=== PATIENT | male | born 1990 | race Caucasian/White ===

== ENCOUNTER 2017-07-19 07:46 | Inpatient (IN) | payer BC, OTHER ==
[~2017-07-19] VITALS: Ht 180.3 cm; Wt 72.6 kg
[2017-07-19] MEDS ORDERED: ONDANSETRON ODT 4 MG TAB.RAPDIS SL PRN (15:30)
[2017-07-19] MEDS ORDERED: INSULIN REGULAR, HUMAN 300 UNIT/3 ML VIAL SQ PRN ×2 (15:30→17:15)
[2017-07-19] MEDS ORDERED: ACETAMINOPHEN 325 MG TABLET PO PRN (15:30)
[2017-07-19] MEDS ORDERED: DEXTROSE 50% 50 ML DISP.SYRIN IV PRN ×2 (15:30→17:15)
[2017-07-19] MEDS ORDERED: MAG HYDROX/AL HYDROX/SIMETH 30 ML LIQUID UDC PO PRN (15:30)
[2017-07-19] MEDS ORDERED: INSULIN REGULAR, HUMAN 300 UNITS/3 ML VIAL SQ PRN (15:30)
[2017-07-19] MEDS ORDERED: IBUPROFEN 600 MG TABLET PO PRN (15:30)
[2017-07-19] MEDS ORDERED: ONDANSETRON 4 MG/2 ML VIAL IM PRN (15:30)
[2017-07-19] MEDS ORDERED: LOPERAMIDE HCL 2 MG CAPSULE PO PRN ×2 (15:30)
[2017-07-19] MEDS ORDERED: HYDROXYZINE PAMOATE 25 MG CAPSULE PO PRN (15:30)
[2017-07-19] MEDS ORDERED: LORAZEPAM 2 MG/1 ML VIAL IM PRN (15:30)
[2017-07-19] MEDS ORDERED: BUPRENORPHINE HCL 2 MG TAB.SUBL SL PRN (15:30)
[2017-07-19] MEDS ORDERED: MAGNESIUM HYDROXIDE 30 ML LIQUID UDC PO PRN (15:30)
[2017-07-19] MEDS ORDERED: MIRALAX 17 GM POWD.PACK PO PRN (15:30)
[2017-07-19] MEDS ORDERED: INSULIN PUMP SQ SCH (15:30)
[2017-07-19] MEDS ORDERED: NICOTINE POLACRILEX 4 MG GUM-PK OF TEN BC PRN (15:30)
[2017-07-19] MEDS ORDERED: NICOTINE 14 MG/24HR PATCH TD PRN (15:30)
[2017-07-19] MEDS ORDERED: DICYCLOMINE HCL 20 MG TABLET PO PRN (15:30)
[2017-07-19 16:30] VITALS: BP 129/74
[2017-07-19] MEDS ORDERED: BLOOD SUGAR DIAGNOSTIC 1 EACH STRIP VI SCH (16:30)
[2017-07-19] MEDS ORDERED: INSU100V (16:35)
[2017-07-19 17:07] LABS: *AMPHETAMINE, URINE NEGATIVE (NEGATIVE); *BARBITURATE, URINE NEGATIVE (NEGATIVE); *CANNABINOID, URINE POSITIVE (NEGATIVE); *COCCAINE, URINE POSITIVE (NEGATIVE); *OPIATE, URINE POSITIVE (NEGATIVE); *PHENCYCLIDINE SCREEN,URINE NEGATIVE (NEGATIVE)
[2017-07-19] MEDS: BLOOD SUGAR DIAGNOSTIC 1 EACH STRIP VI SCH ×2 (17:26→20:32)
[2017-07-19] MEDS: LORAZEPAM 1 MG TABLET PO PRN (20:26)
[2017-07-19] MEDS: METHOCARBAMOL 750 MG TABLET PO PRN (20:27)
[2017-07-19 22:08] LABS: BASOPHILS % (AUTO) 0.6 % (0.0-2.0); EOSINOPHILS # (AUTO) 0.3 K/uL (0.0-0.7); EOSINOPHILS % (AUTO) 4.2 % (0.0-7.0); HEMATOCRIT 41.3 % (36.7-47.1); HEMOGLOBIN 14.5 g/dL (12.5-16.3); LYMPHOCYTES % (AUTO) 32.7 % (20.5-51.5); MEAN CORPUSCULAR HEMOGLOBIN 31.3 uug (23.8-33.4); MEAN CORPUSCULAR HGB CONC 35 g/dL (32.5-36.3); MEAN CORPUSCULAR VOLUME 89.4 fL (73.0-96.2); MONOCYTES # (AUTO) 0.5 K/uL (2.0-10.0); MONOCYTES % (AUTO) 7.5 % (0.0-11.0); NEUTROPHILS # (AUTO) 3.3 K/uL (1.8-8.9); PLATELET COUNT (AUTO) 246 K/uL (152-348); RED BLOOD CELL COUNT(AUTO) 4.62 MIL/uL (4.06-5.63)
[2017-07-19 22:28] LABS: ALANINE AMINOTRANSFERASE 16 U/L (16-63); ALKALINE PHOSPHATASE 115 U/L (50-136); ASPARTATE AMINOTRANSFERASE 14 U/L (15-37); BILIRUBIN,TOTAL 0.4 mg/dL (0.2-1.0); CARBON DIOXIDE 31 mmol/L (21-32); CHLORIDE 100 mmol/L (98-107); CREATININE 0.9 mg/dL (0.6-1.3); GLUCOSE 150 mg/dL (74-106); MAGNESIUM 1.9 mg/dL (1.8-2.4); POTASSIUM 3.8 mmol/L (3.5-5.1); TOTAL PROTEIN, SERUM 7.7 g/dL (6.4-8.2); UREA NITROGEN, BLOOD 17 mg/dL (7-18)
[2017-07-19 22:39] LABS: ETHANOL < 3 MG/DL (0-0)
[2017-07-20] MEDS: diphenhydrAMINE 50 MG CAPSULE PO PRN (01:40)
[2017-07-20 04:00] VITALS: BP 108/65
[2017-07-20] MEDS: LORAZEPAM 1 MG TABLET PO PRN ×3 (06:04→20:20)
[2017-07-20] MEDS: BLOOD SUGAR DIAGNOSTIC 1 EACH STRIP VI SCH ×4 (07:40→20:23)
[2017-07-20 08:00] VITALS: BP 130/76
[2017-07-20] MEDS: METHOCARBAMOL 750 MG TABLET PO PRN (08:45)
[2017-07-20] MEDS: BUPRENORPHINE HCL 2 MG TAB.SUBL SL SCH ×3 (08:45→20:19)
[2017-07-20] MEDS: CLONIDINE HCL 0.1 MG TABLET PO PRN (08:45)
[2017-07-20] MEDS ORDERED: TUBERCULIN,PURIF.PROT.DERIV. 5 TU/0.1 ML TEST ID ONE (09:00)
[2017-07-20] MEDS ORDERED: GABAPENTIN 300 MG CAPSULE PO ONE (11:00)
[2017-07-20] MEDS ORDERED: BACLOFEN 10 MG TABLET PO ONE (11:00)
[2017-07-20] MEDS ORDERED: CLONIDINE HCL 0.1 MG TABLET PO ONE (11:00)
[2017-07-20] MEDS ORDERED: KETOROLAC TROMETHAMINE 30 MG INJ IM PRN (11:00)
[2017-07-20 12:00] VITALS: BP 116/78
[2017-07-20 16:00] VITALS: BP 126/69
[2017-07-20 20:00] VITALS: BP 143/75
[2017-07-20] MEDS: CLONIDINE HCL 0.1 MG TABLET PO SCH (20:19)
[2017-07-20] MEDS: BACLOFEN 10 MG TABLET PO SCH (20:19)
[2017-07-20] MEDS: GABAPENTIN 300 MG CAPSULE PO SCH (20:19)
[2017-07-21 04:00] VITALS: BP 128/85
[2017-07-21] MEDS: LORAZEPAM 1 MG TABLET PO PRN ×2 (04:01→08:56)
[2017-07-21] MEDS: CLONIDINE HCL 0.1 MG TABLET PO PRN (04:01)
[2017-07-21 08:00] VITALS: BP 126/88
[2017-07-21 08:06] LABS: HEPATITIS B SURFACE AG Negative (Negative)
[2017-07-21] MEDS: BLOOD SUGAR DIAGNOSTIC 1 EACH STRIP VI SCH ×4 (08:15→20:48)
[2017-07-21] MEDS: GABAPENTIN 300 MG CAPSULE PO SCH ×2 (08:56→20:41)
[2017-07-21] MEDS: BACLOFEN 10 MG TABLET PO SCH ×2 (08:56→20:41)
[2017-07-21] MEDS: CLONIDINE HCL 0.1 MG TABLET PO SCH ×2 (08:57→20:42)
[2017-07-21] MEDS ORDERED: BUPRENORPHINE HCL 2 MG TAB.SUBL SL SCH (09:00)
[2017-07-21 12:00] VITALS: BP 122/66
[2017-07-21] MEDS: BUPRENORPHINE HCL 2 MG TAB.SUBL SL SCH ×2 (15:33→20:42)
[2017-07-21 16:00] VITALS: BP 125/76
[2017-07-21 20:00] VITALS: BP 141/84
[2017-07-22] MEDS: BLOOD SUGAR DIAGNOSTIC 1 EACH STRIP VI SCH ×4 (07:46→21:44)
[2017-07-22 08:00] VITALS: BP 126/82
[2017-07-22] MEDS: GABAPENTIN 300 MG CAPSULE PO SCH (08:49)
[2017-07-22] MEDS: BACLOFEN 10 MG TABLET PO SCH ×2 (08:49→20:58)
[2017-07-22] MEDS ORDERED: BUPRENORPHINE HCL 2 MG TAB.SUBL SL SCH (09:00)
[2017-07-22] MEDS: CLONIDINE HCL 0.1 MG TABLET PO SCH ×2 (09:00→20:58)
[2017-07-22 12:00] VITALS: BP 134/84
[2017-07-22 16:00] VITALS: BP 152/85
[2017-07-22] MEDS: METHOCARBAMOL 750 MG TABLET PO PRN (16:31)
[2017-07-22] MEDS: CLONIDINE HCL 0.1 MG TABLET PO PRN (16:32)
[2017-07-22] MEDS ORDERED: DIPH50CA37 PO (18:18)
[2017-07-22] MEDS ORDERED: HYDR-3895 PO (18:18)
[2017-07-22] MEDS ORDERED: IBUP-1955 PO (18:18)
[2017-07-22] MEDS ORDERED: DICY20TA28 PO (18:18)
[2017-07-22] MEDS ORDERED: GABA-534 PO ×3 (18:18→18:23)
[2017-07-22] MEDS ORDERED: CLON0.1T14 PO (18:18)
[2017-07-22] MEDS ORDERED: METH-406 PO (18:18)
[2017-07-22 20:00] VITALS: BP 93/40
[2017-07-22 20:55] VITALS: BP 121/68
[2017-07-22] MEDS ORDERED: GABAPENTIN 300 MG CAPSULE PO SCH (21:00)
[2017-07-22] MEDS: diphenhydrAMINE 50 MG CAPSULE PO PRN (21:49)
[2017-07-23] MEDS: BLOOD SUGAR DIAGNOSTIC 1 EACH STRIP VI SCH (07:23)
[2017-07-23 08:00] VITALS: BP 149/84
[2017-07-23] MEDS: BACLOFEN 10 MG TABLET PO SCH (08:03)
[2017-07-23 08:04] VITALS: BP 149/84
[2017-07-23] MEDS: CLONIDINE HCL 0.1 MG TABLET PO SCH (08:04)
[2017-07-23] MEDS ORDERED: GABAPENTIN 300 MG CAPSULE PO SCH (09:00)
[2017-07-23] MEDS ORDERED: BUPRENORPHINE HCL 2 MG TAB.SUBL SL SCH (09:00)
[2017-07-24] MEDS ORDERED: BUPRENORPHINE HCL 2 MG TAB.SUBL SL SCH (09:00)
== END 2017-07-23 09:34 | disposition other institution (70) | DRG 895 ==
LOC: SRC 15:04
PROVIDERS: ADMIT Internal Medicine; ATTEND Internal Medicine
PROC: HZ2ZZZZ Detoxification Services for Substance Abuse Treatment (ICD-10-PCS; principal; 2017-07-19)
PROC: HZ31ZZZ Individual Counseling for Substance Abuse Treatment, Behavioral (ICD-10-PCS; 2017-07-21)
PROC: HZ41ZZZ Group Counseling for Substance Abuse Treatment, Behavioral (ICD-10-PCS; 2017-07-21)
DX: F11.23 Opioid dependence with withdrawal (principal); I15.9 Secondary hypertension, unspecified; E10.9 Type 1 diabetes mellitus without complications; F12.10 Cannabis abuse, uncomplicated; F14.10 Cocaine abuse, uncomplicated; F17.210 Nicotine dependence, cigarettes, uncomplicated; F41.9 Anxiety disorder, unspecified; F13.230 Sedative, hypnotic or anxiolytic dependence with withdrawal, uncomplicated; Z91.89 Other specified personal risk factors, not elsewhere classified; G47.00 Insomnia, unspecified; F90.9 Attention-deficit hyperactivity disorder, unspecified type; Z79.4 Long term (current) use of insulin
CPT/HCPCS: 36415; 70030-TC; 80307; 80346; 80349; 80353; 80361; 83735; 85025; 86580; 86592; 86705; 86803; 87340; 87806; A4663; G0480; J1815; Q0163